=== PATIENT | male | born 1965 | race Caucasian/White ===

== ENCOUNTER 2018-02-16 13:32 | Inpatient (IN) | payer SELFPAY ==
[2018-02-16 14:21] LABS: #Lymphocytes 0.9 thou/uL (1.20-3.40); #Monocytes 0.8 thou/uL (0.11-0.59); #Neutrophils 5.4 thou/uL (1.40-6.50); %Basophils 0.6 % (0.0-1.0); %Eosinophils 0.2 % (0.0-10.0); %Lymphocytes 12.6 % (21.0-51.0); %Monocytes 11.2 % (0.0-10.0); %Neutrophils 75.4 % (42.0-75.0); Hemoglobin 8.5 g/dL (14.0-18.0); Mean Corpuscular HGB CONC 29.1 g/dL (32.0-36.0); Mean Corpuscular Hemoglobin 19.6 pg (27.0-31.0); Mean Corpuscular Volume 67.5 fL (78.0-98.0); Mean Platelet Volume 10.8 fL (7.4-10.4); Platelet Count 261 thou/uL (130-400); RBC Distribution Width 16.8 % (11.5-14.5); Red Blood Cell (RBC) Count 4.34 mill/uL (4.70-6.10); White Blood Cell (WBC) Count 7.2 thou/uL (4.8-10.8)
[2018-02-16 14:35] LABS: Anisocytosis SLIGHT = 6-15 cells (100X) (0-5/hpf); Hypochromia SLIGHT = 6-15 cells (100X) (0-5/hpf); MDiff Complete? YES; Microcytosis SLIGHT = 6-15 cells (100X) (0-5/hpf); Ovalocytes SLIGHT = 2-5 cells (100X) (0-1/hpf); PLT Morphology Comment Appears Adequate; Polychromasia SLIGHT = 2-3 cells (100X) (0-2/hpf)
[2018-02-16 14:41] LABS: ALT (SGPT) 13 U/L (8-55); AST (SGOT) 18 U/L (5-34); Albumin 3.9 g/dL (3.5-5.0); Alkaline Phosphatase 83 U/L (40-150); Anion Gap 8 mmol/L (10-20); BUN (Urea Nitrogen) 10 mg/dL (8.4-25.7); Bilirubin, Total 0.3 mg/dL (0.2-1.2); Calc. Creatinine Clearance 0 mL/min (70-130); Calcium 8.8 mg/dL (7.8-10.44); Carbon Dioxide 27 mmol/L (22-29); Chloride 104 mmol/L (98-107); Estimated GFR-MDRD Greater than 90; Globulin 2.9 g/dL (2.4-3.5); Glucose 108 mg/dL (70-105); Lipase 16 U/L (8-78); Protein, Total 6.8 g/dL (6.0-8.3); Sodium 135 mmol/L (136-145)
[2018-02-16 15:10] LABS: Prothrombin Time 13.5 SEC (12.0-14.7)
[2018-02-16 15:11] LABS: PTT 30.5 SEC (22.9-36.1)
[2018-02-16 15:31] LABS: Bilirubin Small (Negative); Blood, Urine Negative (Negative); Clarity CLEAR (Clear); Glucose, Urine (Dipstick) Negative (Negative); Leukocyte Negative (Negative); Nitrite Negative (Negative); Protein, Urine (Dipstick) 30 mg/dL (Neg-Trace); Specific Gravity, Urine 1.038 (1.002-1.036); Urobilinogen 0.2 mg/dL (0.2-1.0); pH, Urine 5.5 (5.0-9.0)
[2018-02-16 15:33] LABS: Bacteria/HPF None Seen HPF (None Seen); RBC/HPF 0-3 HPF (0-3); Squamous Epithelial 0-3 HPF (0-3); WBC/HPF 0-3 HPF (0-3)
[2018-02-16 15:34] LABS: Pathc Cast-AUWi Flag 5.66 (0-2.49)
[2018-02-16 15:44] LABS: Other Casts/LPF 4-6 FINELY GRAN LPF (0-3 Hyaline); Renal Epithelial None Seen HPF (0-3); Transitional Epithelial NONE SEEN HPF (0-3)
[2018-02-16] MEDS ORDERED: Ondansetron HCl/PF 4 MG/2 ML Vial IVP PRN (16:00)
[2018-02-16] MEDS ORDERED: Acetaminophen 325 MG TAB PO PRN (16:00)
[2018-02-16] MEDS ORDERED: Zolpidem Tartrate 5 MG TAB PO PRN (16:00)
--- NOTE | 2018-02-16 16:05 | HP ---
CHIEF COMPLAINT: The patient referred to [facility] by [facility]. HISTORY OF PRESENT ILLNESS: Patient with a roughly 11-year history of ulcerative colitis is out of his medicines for about 3 weeks due to financial difficulties. He states it is the same thing that always happens. He has a gradual onset of diarrhea, abdominal pain, and cramps and bloody diarrhea. He has lost 10 pounds in the past month. Denies fever, chills, vomiting. PAST MEDICAL HISTORY: Ulcerative colitis diagnosed in 1907. He has been on Apriso, but he is out. He often gets steroids when he is hospitalized. ALLERGIES: To CIPRO, rash. PAST SURGICAL HISTORY: None. FAMILY HISTORY: No inflammatory bowel disease. SOCIAL HISTORY: Single. Does not smoke. Occasional alcohol. REVIEW OF SYSTEMS: GENERAL: He has got some lethargy and lightheadedness and has to move slow. He has had no actual fainting. EYES: No double vision, blurred vision, flashing lights. ENT: No ear pain or drainage. No nasal bleeding. No trouble swallowing. CARDIAC: No chest pain, orthopnea or paroxysmal nocturnal dyspnea. RESPIRATORY: No cough, wheezing, or asthma. GASTROINTESTINAL: See present illness. GENITOURINARY: No hematuria or dysuria. MUSCULOSKELETAL: No inflamed joints, but his knees and elbows hurt. No distinct pain in his muscles, no swelling in his legs. PSYCHIATRIC: No anxiety or depression. NEUROLOGICAL: No strokes, seizures or focal weakness. SKIN: No bruising, bleeding, or rash. HEME/LYMPH: No tender or swollen lymph nodes in axilla, inguinal, or cervical area. PHYSICAL EXAMINATION: GENERAL: Alert, oriented, cooperative, pleasant gentleman. VITALS: Blood pressure 122/82, pulse 108, respirations 15, temperature 98.6. HEENT: Reveal pupils equal, round, and reactive. Extraocular movements are intact. Sclerae white. Tympanic membranes are clear. Nose is clear. Oral mucous membranes are wet. He had a lower left molar that is 90% rotted out, he stated he knew it. NECK: No jugular venous distention, adenopathy, or thyromegaly. CHEST: Clear to auscultation. HEART: Regular rate and rhythm. First and second heart sounds clear. No appreciated murmurs or gallops. ABDOMEN: Soft, very minimal tenderness to palpation. Bowel sounds were normal. No hepatosplenomegaly. No mass. EXTREMITIES: No cyanosis, clubbing, or edema. PULSES: Carotid, radial, femoral, and dorsalis pedis pulses intact and symmetric. SKIN: Warm and dry. HEME/LYMPH: No tender or swollen lymph nodes in axilla, inguinal or cervical area. No petechial hemorrhages on his fingernails. Oral mucous membranes. NEUROLOGICAL: Cranial nerves II-XII are intact. Deep tendon reflexes are symmetric. STUDIES: No radiographic studies have been done. EKG, none has been done. LABORATORY DATA: White count 7.2 with absolute neutrophilia, hemoglobin 8.5, platelet count 261,000. INR 1.0. Chemistry: Sodium 135, potassium 4.0, CO2 of 27, BUN 10, creatinine 0.83, blood sugar 108. Liver function tests are normal. ADMITTING DIAGNOSES: Ulcerative colitis flare with: 1. Abdominal pain. 2. Bloody diarrhea. 3. Anemia. PLAN: 1. IV steroids. 2. Morphine sulfate for pain. 3. Serial H&H, transfuse if necessary. If hemoglobin drops below 7, GI consult. CODE STATUS: Full. No surrogate decision maker available. plan reviewed, patient seen and examined. agree with plan of action MTDD
--- NOTE | 2018-02-16 16:45 | RAD ---
PA AND LATERAL CHEST X-RAY 02/16/18 HISTORY: Ulcerative colitis. COMPARISON: None available. FINDINGS: The cardiac silhouette and pulmonary vasculature are within normal limits. The lungs are clear. Mild degenerative changes are seen in the spine. IMPRESSION: No acute cardiopulmonary process. POS: [facility]
[2018-02-16] MEDS: Morphine 4 MG/ML VIAL SLOW IVP PRN ×2 (17:30→22:22)
[2018-02-16] MEDS: Sodium Chloride 0.9% 1,000 ML IV SCH (17:37)
[2018-02-16 17:56] VITALS: BMI 25.7
[2018-02-16] MEDS: Mesalamine DR 400 mg Capsule PO SCH (20:48)
[2018-02-16] MEDS ORDERED: Vancomycin HCl 25 MG/ML Oral PO SCH (22:15)
[2018-02-16 22:18] LABS: Hemoglobin 7.9 g/dL (14.0-18.0); Platelet Count 235 thou/uL (130-400)
[2018-02-16] MEDS: Azithromycin 500 MG in Sodium Chloride 0.9% 250 ML 250 ML IVPB SCH (22:32)
--- NOTE | 2018-02-17 02:19 | CON ---
DATE OF CONSULTATION: 02/16/2018 REASON FOR CONSULTATION: Probable ulcerative colitis flare. CONSULTING PHYSICIAN: Dr. Matias Muñoz. HISTORY OF PRESENT ILLNESS: The patient is a 52-year-old male with a past medical history of ulcerat tori colitis, presenting with complaints of diarrhea, abdominal pain, and hematochezia. Upon intervie wing the patient, he was diagnosed with ulcerative colitis in 2006 with initial presenting complaints of increased diarrhea, abdominal pain, and hematochezia. He subsequently underwent colonoscopy with biopsies confirming the diagnosis. He was initially placed on sulfasalazine at that time and had co mplete remission of his symptoms. Over the next 7-8 years, he was fairly well controlled on this par ticular regimen with only intermittent flares that required short bursts of steroids during this time . However, in 2014, he was changed from sulfasalazine to Apriso again with clinical remission obtain ed and only intermittent episodes of IBD flares. However, approximately 3 weeks ago, he ran out of t he Apriso and over the last 3 weeks, he had a recurrence of increased diarrhea, which then was shortl y followed by abdominal pain and had hematochezia shortly thereafter. At the current point in time, his presenting symptoms are similar to his initial presenting symptoms were diagnosed in 2006. The a bdominal pain, he states it is located in the suprapubic region characterized as an aching, cramping- type sensation, nonradiating, and will reach a severity approximately 6-7/10. There are no clear all eviating or exacerbating factors, but somewhat alleviated with having a bowel movement. Currently, h e denies any nausea, vomiting, fevers, chills, dysphagia, or odynophagia. REVIEW OF SYSTEMS: A 10-category review of systems was obtained with all responses negative except f or the pertinent positives as listed in the HPI. PAST MEDICAL HISTORY: Ulcerative colitis. PAST SURGICAL HISTORY: None. FAMILY HISTORY: Denies any GI malignancies or inflammatory bowel disease. SOCIAL HISTORY: Denies any tobacco or illicit drug use. Drinks approximately 2-3 beers every 1-2 we eks. OUTPATIENT MEDICATIONS: Apriso 1.5 g daily. ALLERGIES: CIPRO. PHYSICAL EXAMINATION: VITAL SIGNS: Temperature 98.4, pulse 96, blood pressure 125/81, respiratory rate 20, satting 100% on room air. GENERAL: The patient was lying in bed, in no acute distress. Alert and oriented x4. NECK: Supple. No JVD noted. HEENT: No scleral icterus noted. CARDIOVASCULAR: Tachycardic rate, but normal rhythm. No discernible murmurs, gallops, or rubs. RESPIRATORY: Clear to auscultation bilaterally with no discernible wheezes or rales. ABDOMEN: Normoactive bowel sounds, soft, nondistended. Tenderness to palpation in the periumbilical and suprapubic regions as well as the left and right lower quadrants. EXTREMITIES: No cyanosis, clubbing, or edema. LABORATORY DATA: CBC with a white blood cell count of 7.2, hemoglobin 8.5, hematocrit 29.3, platelet s 261,000. INR 1.0. Chemistry showing sodium of 135, potassium 4.0, chloride 104, CO2 of 27, BUN 10 , creatinine 0.83, glucose 108, AST 18, ALT 13, alkaline phosphatase 83, total bilirubin 0.3. IMAGING DATA: Chest x-ray obtained on 02/16/2018, showed no acute cardiopulmonary process. ASSESSMENT AND PLAN: The patient is a 52-year-old man with past medical history of ulcerative coliti s, presenting with a probable ulcerative colitis flare due to medication noncompliance. Ulcerative colitis flare: The patient was initially diagnosed with ulcerative colitis in 2006 with i nitial presenting symptoms of diarrhea, abdominal pain, and hematochezia. He subsequently underwent colonoscopy with endoscopic and histologic findings consistent with ulcerative colitis. He was ultim ately placed on sulfasalazine and was in remission with only intermittent flares while on this medica tion, he was changed to Apriso in 2014 and again enjoyed an element of remission with only mild flare s requiring short steroid tapers; however, he ran out of his medications approximately [address] moving to the [facility] area and had recurrence of his symptoms including diarrhea, a bdominal pain, and hematochezia characterized as bright red blood per rectum. At this point in time, the most likely reason for the recurrence of his symptoms would be an ulcerative colitis flare due t o medication noncompliance/running out of his medications. However, infectious etiology should be ru led out in light of any sort of inflammatory bowel disease flare. RECOMMENDATIONS: 1. We would obtain infectious stool studies to rule out any infectious etiology that could be contri buting to his flare. Once the stool studies are obtained, could consider with other modalities of era. 2. Once this infectious stool studies are obtained, would start the patient back on mesalamine 2.4 g steven daily in addition to methylprednisolone 40 mg q.6 hours for probable ulcerative colitis flare. 3. If the Infectious Disease studies are positive for infectious etiology, I would withdraw the ster oid administration and treat the infection as appropriate. 4. Pain control per primary team. 5. Patient will ultimately need follow up in the GI clinic upon discharge for further titration of h is medications and monitoring for his ulcerative colitis. We will continue to follow. Please call with any questions.
[2018-02-17] MEDS: Sodium Chloride 0.9% 1,000 ML IV SCH ×2 (04:40→14:53)
[2018-02-17 05:22] LABS: #Lymphocytes 0.4 thou/uL (1.20-3.40); #Monocytes 0.2 thou/uL (0.11-0.59); %Eosinophils 0.1 % (0.0-10.0); %Lymphocytes 5.3 % (21.0-51.0); %Neutrophils 92.6 % (42.0-75.0); Hemoglobin 7.8 g/dL (14.0-18.0); Mean Corpuscular HGB CONC 28.4 g/dL (32.0-36.0); Mean Corpuscular Hemoglobin 19.3 pg (27.0-31.0); Mean Corpuscular Volume 67.9 fL (78.0-98.0); Mean Platelet Volume 10.8 fL (7.4-10.4); Platelet Count 257 thou/uL (130-400); RBC Distribution Width 16.9 % (11.5-14.5); Red Blood Cell (RBC) Count 4.05 mill/uL (4.70-6.10); White Blood Cell (WBC) Count 7.6 thou/uL (4.8-10.8)
[2018-02-17 05:29] LABS: Anion Gap 8 mmol/L (10-20); BUN (Urea Nitrogen) 6 mg/dL (8.4-25.7); Calc. Creatinine Clearance 131 mL/min (70-130); Calcium 8.6 mg/dL (7.8-10.44); Carbon Dioxide 26 mmol/L (22-29); Chloride 103 mmol/L (98-107); Estimated GFR-MDRD Greater than 90; Glucose 223 mg/dL (70-105); Potassium 4.2 mmol/L (3.5-5.1); Sodium 133 mmol/L (136-145)
[2018-02-17] MEDS: Morphine 4 MG/ML VIAL SLOW IVP PRN ×4 (06:08→20:05)
[2018-02-17 06:10] LABS: Hemoglobin 7.7 g/dL (14.0-18.0); Platelet Count 262 thou/uL (130-400)
--- NOTE | 2018-02-17 08:01 | PDOC.PN ---
- Subjective Encounter Start Date: 02/17/18 Encounter Start Time: 08:02 Subjective: much better, no diarrhea - Objective Resuscitation Status: Resuscitation Status FULL:Full Resuscitation MAR Reviewed: Yes Vital Signs & Weight: Vital Signs (12 hours) Temp Pulse Resp BP Pulse Ox 02/17/18 07:34 98.4 F 84 18 127/72 100 02/17/18 04:22 98.8 F 84 16 109/68 98 02/17/18 00:39 98.8 F 93 16 110/68 97 02/16/18 20:08 99.2 F 85 18 118/79 97 02/16/18 20:00 98 Weight Weight 179 lb Result Diagrams: 02/17/18 05:52 02/17/18 04:17 Phys Exam - Physical Examination Neck: no JVD Respiratory: clear to auscultation bilateral Cardiovascular: RRR, no significant murmur Gastrointestinal: soft, non-tender, positive bowel sounds Musculoskeletal: no edema Dx/Plan (1) Colitis due to Clostridium difficile Status: Acute (2) Ulcerative colitis Code(s): K51.90 - ULCERATIVE COLITIS, UNSPECIFIED, WITHOUT COMPLICATIONS Status: Chronic Qualifiers: Ulcerative colitis location: unspecified ulcerative colitis location Digestive disease complication type: unspecified complication Qualified Code(s ): K51.919 - Ulcerative colitis, unspecified with unspecified complications (3) Campylobacter enteritis Code(s): A04.5 - CAMPYLOBACTER ENTERITIS Status: Acute (4) Anemia Code(s): D64.9 - ANEMIA, UNSPECIFIED Status: Acute Qualifiers: Anemia type: unspecified type Qualified Code(s): D64.9 - Anemia, unspecified - Plan stop steroids -: add po vancomycin, zithromax -: discuss with GI * .
[2018-02-17] MEDS: Vancomycin HCl 25 MG/ML Oral PO SCH ×4 (09:36→19:59)
[2018-02-17] MEDS: Mesalamine DR 400 mg Capsule PO SCH ×3 (09:37→19:58)
--- NOTE | 2018-02-17 13:00 | PRG ---
DATE OF SERVICE: 02/17/2018 REASON FOR CONSULTATION: Probable ulcerative colitis flare, infectious diarrhea. SUBJECTIVE: Upon review of the patient's studies, he was positive for both Clostridium difficile as well as Campylobacter infections which could then further exacerbate his ulcerative colitis. He was subsequently started on azithromycin and oral vancomycin respectively and since administration of ant ibiotics, he states that his diarrhea frequency has diminished to the point where he has had only two bowel movements this morning compared to the 5-12 bowel movements over the last 24 hours previously. Currently, he states that his abdominal pain has significantly improved as well, and he has not had any further episodes of hematochezia. Currently, denies any nausea, vomiting, fevers, chills, dysph agia, odynophagia or GI bleeding. OBJECTIVE: VITAL SIGNS: Temperature 98.2, pulse 84, blood pressure 111/68, respiratory rate 18, satting 99% on room air. GENERAL: The patient lying in bed, in no acute distress. Alert and oriented x4. CARDIOVASCULAR: Regular rate and rhythm. LUNGS: Clear to auscultation bilaterally. ABDOMEN: Normoactive bowel sounds, soft, nondistended, mild tenderness to palpation in the periumbil ical and suprapubic regions. EXTREMITIES: No cyanosis, clubbing or edema. LABORATORY DATA: CBC with a white blood cell count of 7.6, hemoglobin 7.7, hematocrit 26.4, platelet s 262. Chemistry with a sodium 133, potassium 4.2, chloride 103, CO2 26, BUN 6, creatinine 0.76, glu cose 223. Infectious stool studies were positive for both Clostridium difficile and Campylobacter in fections. IMAGING DATA: No current GI imaging is available for review. ASSESSMENT AND PLAN: The patient is a 52-year-old male with past medical history of ulcerative colit is presenting with probable ulcerative colitis flare due to medication noncompliance and/or infectiou s diarrhea. Ulcerative colitis flare secondary to infection: The patient was initially diagnosed with ulcerative colitis in 2006 with initial presenting symptoms including diarrhea, abdominal pain, and hematochezi a. He subsequently underwent colonoscopy with endoscopic and histologic findings consistent with [place] erative colitis. He was ultimately placed on sulfasalazine and more recently Apriso with significant improvement in his symptoms and enjoyed an element of remission during this time with only mild flar es requiring short steroid tapers; however, he ran out of his Apriso approximately 3 weeks ago with s low return of his initially presenting symptoms including diarrhea, abdominal pain, and hematochezia. With worsening of all of these symptoms as well as bright red blood per rectum, he ultimately sough t health care assistance at [facility]. Infectious stool studies performed while he was her e were positive for Campylobacter and Clostridium difficile infections. He was placed on appropriate antibiotic therapy and has had a significant improvement in the frequency of his bowel movements aft er initiation of this therapy. At this time, the more likely reason for his ulcerative colitis flare would be an infectious diarrhea; however, medication noncompliance or rather not taking his medicati ons could also contribute to what is going on. RECOMMENDATIONS: 1. We would continue to treat the Campylobacter and Clostridium difficile infections with azithromyc in and oral vancomycin respectively. 2. We would continue mesalamine 2.4 grams daily as part of treatment of ulcerative colitis. 3. I agree with holding the steroids for now and given active infection within the colon. 4. Pain control per primary team. We will continue to follow. Please call with any questions.
[2018-02-17 14:23] LABS: Hemoglobin 7.6 g/dL (14.0-18.0); Platelet Count 258 thou/uL (130-400)
[2018-02-17 22:04] LABS: Platelet Count 255 thou/uL (130-400)
[2018-02-17] MEDS: Azithromycin 500 MG in Sodium Chloride 0.9% 250 ML 250 ML IVPB SCH (22:43)
[2018-02-18 05:23] LABS: #Lymphocytes 1.4 thou/uL (1.20-3.40); #Neutrophils 8.4 thou/uL (1.40-6.50); %Basophils 0.4 % (0.0-1.0); %Eosinophils 0.2 % (0.0-10.0); %Lymphocytes 12.8 % (21.0-51.0); %Monocytes 9.6 % (0.0-10.0); %Neutrophils 77.1 % (42.0-75.0); Hemoglobin 7.2 g/dL (14.0-18.0); Mean Corpuscular HGB CONC 28.6 g/dL (32.0-36.0); Mean Corpuscular Hemoglobin 19.8 pg (27.0-31.0); Mean Corpuscular Volume 69.1 fL (78.0-98.0); Mean Platelet Volume 9.8 fL (7.4-10.4); Platelet Count 273 thou/uL (130-400); RBC Distribution Width 17.1 % (11.5-14.5); Red Blood Cell (RBC) Count 3.66 mill/uL (4.70-6.10); White Blood Cell (WBC) Count 10.9 thou/uL (4.8-10.8)
[2018-02-18] MEDS: Sodium Chloride 0.9% 1,000 ML IV SCH ×3 (05:25→15:56)
[2018-02-18 05:29] LABS: Anion Gap 9 mmol/L (10-20); BUN (Urea Nitrogen) 6 mg/dL (8.4-25.7); Calc. Creatinine Clearance 158 mL/min (70-130); Calcium 8.2 mg/dL (7.8-10.44); Carbon Dioxide 26 mmol/L (22-29); Chloride 109 mmol/L (98-107); Estimated GFR-MDRD Greater than 90; Glucose 98 mg/dL (70-105); Sodium 140 mmol/L (136-145)
[2018-02-18] MEDS: Mesalamine DR 400 mg Capsule PO SCH ×3 (08:15→19:45)
[2018-02-18] MEDS: Morphine 4 MG/ML VIAL SLOW IVP PRN ×3 (08:16→18:29)
--- NOTE | 2018-02-18 09:40 | PDOC.PN ---
- Subjective Encounter Start Date: 02/18/18 Encounter Start Time: 09:38 Subjective: abd pain and bloosd per rectum resolved - Objective Resuscitation Status: Resuscitation Status FULL:Full Resuscitation Vital Signs & Weight: Vital Signs (12 hours) Temp Pulse Resp BP BP Pulse Ox 02/18/18 07:11 98.8 F 72 19 110/68 100 02/18/18 04:00 97.6 F 70 20 106/62 100 02/18/18 00:00 97.9 F 78 20 100/64 97 Weight Admit Weight 179 lb Weight 179 lb Result Diagrams: 02/18/18 04:31 02/18/18 04:31 Phys Exam - Physical Examination Neck: no JVD Respiratory: clear to auscultation bilateral Cardiovascular: RRR, no significant murmur Gastrointestinal: soft, non-tender, positive bowel sounds Musculoskeletal: no edema Dx/Plan (1) Colitis due to Clostridium difficile Status: Acute (2) Ulcerative colitis Code(s): K51.90 - ULCERATIVE COLITIS, UNSPECIFIED, WITHOUT COMPLICATIONS Status: Chronic Qualifiers: Ulcerative colitis location: unspecified ulcerative colitis location Digestive disease complication type: unspecified complication Qualified Code(s ): K51.919 - Ulcerative colitis, unspecified with unspecified complications (3) Campylobacter enteritis Code(s): A04.5 - CAMPYLOBACTER ENTERITIS Status: Acute (4) Anemia Code(s): D64.9 - ANEMIA, UNSPECIFIED Status: Acute Qualifiers: Anemia type: unspecified type Qualified Code(s): D64.9 - Anemia, unspecified - Plan cont po vancomycin, zithromax -: discuss length of tx and DC planning with Dr Ramirez * .
[2018-02-18] MEDS: Vancomycin HCl 25 MG/ML Oral PO SCH ×3 (10:42→19:46)
--- NOTE | 2018-02-18 13:31 | PRG ---
DATE OF SERVICE: 02/18/2018 REASON FOR CONSULTATION: Probable ulcerative colitis flare, infectious diarrhea. SUBJECTIVE: The patient states that he has increased fatigue this morning, but had not received much sleep over the last 24-48 hours and feels that this is catching up with him. Otherwise, he states t hat within the last 24 hours, he has had approximately 2-3 liquid bowel movements with no difficulty with defecation. He also states that he had some mild increase in cramping abdominal pain this morni ng, but after eating a regular diet, the cramping pain went away. Currently, denies any nausea, vomi ting, fevers, chills, dysphagia, odynophagia, abdominal pain, or GI bleeding. OBJECTIVE: VITAL SIGNS: Temperature 97.7, pulse 81, blood pressure 102/56, respiratory rate 17, satting 99% on room air. GENERAL: The patient was lying in bed in no acute distress. Alert and oriented x4. CARDIOVASCULAR: Regular rate and rhythm. RESPIRATORY: Clear to auscultation bilaterally. ABDOMEN: Normoactive bowel sounds, soft, nontender, nondistended. EXTREMITIES: No cyanosis, clubbing or edema. LABORATORY DATA: CBC with a white blood cell count of 10.9, hemoglobin 7.2, hematocrit 25.3 and plat elets 273. Chemistry with sodium of 140, potassium 4.0, chloride 109, CO2 26, BUN 6, creatinine 0.63 , glucose 98. IMAGING DATA: No current GI imaging is available for review. ASSESSMENT AND PLAN: The patient is a 52-year-old male with past medical history of ulcerative colit is presenting with probable ulcerative colitis flare due to infectious diarrhea. Ulcerative colitis flare secondary to infection. The patient was initially diagnosed with ulcerative colitis in 2006 with initial presenting symptoms including diarrhea, abdominal pain, and hematochezia. He was ultimately placed on sulfasalazine and more recently Apriso with significant improvement in his symptoms and enjoyed an element of remission while on this regimen with only mild flares requiring short steroid tapers in the interim; however, 3 weeks ago with discontinuation of his mesalamine medication (Apriso), he had slow return of his sym ptoms to include diarrhea, abdominal pain, and hematochezia. Upon evaluation here at [facility], he was noted to have a colon infection with both Campylobacter and Clostridium difficile. He w as subsequently placed on appropriate antibiotic therapy and has had significant improvement in his s ymptoms while on this regimen. He does continued to have liquid consistency bowel movements, but has had a significant decrease in frequency indicating response to treatment. Given his history of ulce rative colitis, he may not have normal solidification of his stools with adequate treatment of his C. diff and may not be a reliable indicator as response to treatment. RECOMMENDATIONS: 1. We would continue to treat the Campylobacter and Clostridium difficile infections with azithromyc in and oral vancomycin, respectively. Both of these medications can be given on an outpatient basis. 2. We would continue mesalamine 2.4 grams daily as part of treatment for ulcerative colitis. 3. We would continue to hold steroids for now given active infection. 4. Pain control per primary team. 5. If the patient is able to tolerate a regular diet over the next 24 hours and no significant cline e in the frequency of his stools, he could be potentially discharged to home with oral antibiotic the rapy and follow up in the GI Clinic within 2 weeks of discharge. We will continue to follow. Please call with any questions.
[2018-02-18] MEDS: Azithromycin 500 MG in Sodium Chloride 0.9% 250 ML 250 ML IVPB SCH (22:54)
[2018-02-19] MEDS ORDERED: Morphine 4 MG/ML VIAL ONE (06:27)
[2018-02-19] MEDS: Morphine 4 MG/ML VIAL SLOW IVP PRN ×3 (11:30→21:15)
[2018-02-19] MEDS: Sodium Chloride 0.9% 1,000 ML IV SCH ×2 (11:48→14:56)
[2018-02-19] MEDS: Mesalamine DR 400 mg Capsule PO SCH ×3 (11:48→20:27)
[2018-02-19] MEDS: Vancomycin HCl 25 MG/ML Oral PO SCH ×4 (11:49→20:26)
[2018-02-19 13:41] LABS: Hemoglobin 7.8 g/dL (14.0-18.0)
--- NOTE | 2018-02-19 17:16 | PDOC.PN ---
- Subjective Encounter Start Date: 02/19/18 Encounter Start Time: 17:15 Subjective: f/u for UC flare and infectious diarrhea with C. diff/Campylobacter -: on current Vancomycin/Zithromax. Feeling much better. Some abd cramps -: but appetite good. - Objective Resuscitation Status: Resuscitation Status FULL:Full Resuscitation MAR Reviewed: Yes Vital Signs & Weight: Vital Signs (12 hours) Temp Pulse Resp BP Pulse Ox 02/19/18 16:29 98.9 F 81 16 121/77 98 Weight Admit Weight 179 lb Weight 179 lb I&O: 02/18/18 02/19/18 02/20/18 06:59 06:59 06:59 Intake Total 1200 2350 Balance 1200 2350 Result Diagrams: 02/19/18 10:30 02/18/18 04:31 Additional Labs: Microbiology 02/16/18 20:20 Stool Shiga Toxin Test - Final 02/16/18 20:20 Stool Rotavirus Detection - Final 02/16/18 20:20 Stool Rapid Parasite Screen - Final 02/16/18 20:20 Stool Campylobacter Antigen Assay - Final 02/16/18 20:20 Stool C. difficile GDH Antigen & Toxins - Final 02/16/18 20:20 Stool Clostridium difficile Toxin A&B PCR - Final Laboratory Tests 02/17/18 02/17/18 02/17/18 04:18 05:52 14:11 Hgb 7.8 L 7.7 L 7.6 L 02/17/18 02/18/18 21:49 04:31 Hgb 7.0 L 7.2 L Phys Exam - Physical Examination Constitutional: NAD HEENT: PERRLA, sclera anicteric, oral pharynx no lesions Neck: no nodes, no JVD, supple, full ROM Respiratory: no wheezing, no rales, no rhonchi, clear to auscultation bilateral Cardiovascular: RRR, no significant murmur, no rub, gallop Gastrointestinal: soft, non-tender, no distention, positive bowel sounds Musculoskeletal: no edema, pulses present Neurological: normal sensation, moves all 4 limbs Psychiatric: normal affect, A&O x 3 Skin: normal turgor, cap refill <2 seconds Dx/Plan (1) Ulcerative colitis Code(s): K51.90 - ULCERATIVE COLITIS, UNSPECIFIED, WITHOUT COMPLICATIONS Status: Chronic Qualifiers: Ulcerative colitis location: unspecified ulcerative colitis location Digestive disease complication type: unspecified complication Qualified Code(s ): K51.919 - Ulcerative colitis, unspecified with unspecified complications Comment: Continue Mesalamine, Budesonide (2) Campylobacter enteritis Code(s): A04.5 - CAMPYLOBACTER ENTERITIS Status: Acute Comment: Continue Zithromax (3) Anemia Code(s): D64.9 - ANEMIA, UNSPECIFIED Status: Acute Qualifiers: Anemia type: unspecified type Qualified Code(s): D64.9 - Anemia, unspecified Comment: Transfuse 1u PRBC's today, serial H/H, repeat CBC in am (4) Colitis due to Clostridium difficile Status: Acute Comment: Continue Vancomycin - Plan continue antibiotics, out of bed/ambulate, DVT proph w/SCDs Stable overall -: Continue Zithromax and Vancomycin -: Serial H/H -: Continue Budesonide and Mesalamine -: Florastor daily * AM lab: CBC * Home in am
--- NOTE | 2018-02-19 18:19 | PRG ---
DATE OF SERVICE: 02/19/2018 REASON FOR CONSULTATION: Ulcerative colitis flare, infectious diarrhea. SUBJECTIVE: Yesterday, the patient was initially feeling well with no return of his abdominal pain, but the day wore on he had increasing suprapubic/periumbilical abdominal pain as well as increased fr equency of liquid stools. Overnight, he did have 1-2 episodes of bright red blood per rectum as well . Currently, he states that he continues to have mild cramping abdominal pain, but has not had any f urther episodes of hematochezia this morning/late morning. Currently, he denies any nausea, vomiting , fevers, chills, dysphagia, odynophagia. OBJECTIVE: VITAL SIGNS: Temperature 99.1, pulse 90, blood pressure 108/70, respiratory rate 20, satting 98% on room air. GENERAL: The patient was lying in bed, in no acute distress. He is alert and oriented x4. CARDIOVASCULAR: Regular rate and rhythm. RESPIRATORY: Clear to auscultation bilaterally. ABDOMEN: Normoactive bowel sounds, soft, nontender, nondistended. EXTREMITIES: No cyanosis, clubbing or edema. LABORATORY DATA: Hemoglobin 7.8, hematocrit 28.2. IMAGING DATA: No current GI imaging is available for review. ASSESSMENT AND PLAN: The patient is a 52-year-old male with past medical history of ulcerative colit is presenting with probable ulcerative colitis flare due to infectious diarrhea. Ulcerative colitis flare secondary to infection: The patient is presenting with a prior diagnosis of ulcerative colitis in 2006 and had been relatively controlled with the use of Apriso as an outpatien t; however, he ran out of this medication approximately 3 weeks ago with progressive onset of diarrhe a, abdominal pain, and ultimately hematochezia. Upon evaluation here at [facility], he wa s noted to have infectious stool studies positive for both Campylobacter and Clostridium difficile. He was subsequently placed on appropriate antibiotic therapy and had significant improvement in his s ymptoms while on this regimen. Of note, on admission, he was given approximately 1-2 doses of IV rio roids, which could have contributed to the sudden increase or sudden improvement in his clinical stat us which we are now seeing a slight declining. Now that the infectious diarrhea is being adequately treated. We may be able to add back steroid administration for treatment of his ulcerative colitis [place] [employer]. RECOMMENDATIONS: 1. We would continue antibiotics for treatment of both Campylobacter and Clostridium difficile infec tions. 2. We would continue mesalamine 2.4 grams daily. 3. We would add back budesonide 9 mg daily as part of treatment for ulcerative colitis flare, now th at the infectious diarrhea has started to have been treated. 4. Pain control per primary team. We will continue to follow. Please call with any questions.
[2018-02-19 18:52] LABS: Hemoglobin 9.2 g/dL (14.0-18.0)
[2018-02-19] MEDS: Azithromycin 500 MG in Sodium Chloride 0.9% 250 ML 250 ML IVPB SCH (23:51)
[2018-02-20] MEDS: Sodium Chloride 0.9% 1,000 ML IV SCH (01:04)
[2018-02-20] MEDS: Morphine 4 MG/ML VIAL SLOW IVP PRN ×3 (01:46→09:56)
[2018-02-20] MEDS: Vancomycin HCl 25 MG/ML Oral PO SCH (07:51)
[2018-02-20 07:56] VITALS: BP 114/74; TEMP 98.3
[2018-02-20] MEDS ORDERED: Saccharomyces boulardii 250 MG CAP PO SCH (09:00)
[2018-02-20] MEDS: Mesalamine DR 400 mg Capsule PO SCH (09:49)
--- NOTE | 2018-02-20 10:39 | DIS ---
DATE OF ADMISSION: 02/16/2018 DATE OF DISCHARGE: 02/20/2018 DISCHARGE DIAGNOSES: 1. Ulcerative colitis exacerbation, improved. 2. Campylobacter enteritis, improved. 3. Clostridium difficile colitis. 4. Acute on chronic microcytic anemia, status post 1 unit of packed red blood cells. CONSULTATIONS: Dr. Demetrius Ramirez with GI Service. PERTINENT LABORATORY DATA AND X-RAY FINDINGS: Basic metabolic profile within normal limits. LFTs wi thin normal limits. Lipase 16. CBC showed a white blood cell count ranged between 7.2-10.9, hemoglo bin ranged between 7.0-9.2, MCV ranged between 68-69. Portable chest x-ray dated 02/16/2018 showed n o acute cardiopulmonary process. HOSPITAL COURSE: The patient was initially admitted after presenting with persistent diarrhea, abdom inal pain, and hematochezia. The patient underwent general evaluation. The patient was initially ev aluated and placed on IV steroids as well as given morphine sulfate for pain control and started on a ntibiotic therapy after the patient's stool samples were positive for Campylobacter and Clostridium d ifficile. The patient was evaluated by the GI service with recommendations for medical management. The patient continued on oral vancomycin 125 mg q.i.d. with additional azithromycin 500 mg daily. Th e patient also was placed on budesonide and clinically stabilized. The patient did receive 1 unit of packed red blood cells after serial hemoglobins showed overall decreasing trend. The patient tolera benedicto the packed red blood cell transfusion and hemoglobin remained stable at 9.2. Overall, the patien t did clinically stabilize, tolerating regular oral intake, ambulating without assistance or difficul ty with stable vital signs. I have examined the patient at the time of discharge and discussed [facility] instructions. The patient verbalized understanding and agreement and ready for discharge on 02/08. DISCHARGE MEDICATIONS: 1. Mesalamine 800 mg p.o. t.i.d. 2. Azithromycin 250 mg p.o. daily x4 days. 3. Budesonide 9 mg p.o. daily. 4. Florastor 250 mg p.o. daily. 5. Vancomycin 25 mg per mL, 5 mL p.o. q.i.d. FOLLOWUP: The patient will follow with Dr. Demetrius Ramirez within 7 days of discharge. CONDITION ON DISCHARGE: Stable. ACTIVITY: ad alejandro. DIET: Regular. CODE STATUS: FULL. DISPOSITION: Home 02/20/2018.
== END 2018-02-20 11:59 | disposition home or self-care (01) | DRG 372 ==
LOC: ERS 13:32 → T4-A 16:06
PROVIDERS: ADMIT Internal Medicine; ATTEND Internal Medicine
PROC: 30233N1 Transfusion of Nonautologous Red Blood Cells into Peripheral Vein, Percutaneous Approach (ICD-10-PCS; principal; 2018-02-19)
DX: A04.5 Campylobacter enteritis (principal); K51.90 Ulcerative colitis, unspecified, without complications; A04.72 Enterocolitis due to Clostridium difficile, not specified as recurrent; D50.9 Iron deficiency anemia, unspecified; Z88.1 Allergy status to other antibiotic agents; Z91.14 Patient's other noncompliance with medication regimen
CPT/HCPCS: 36415; 36430; 71046; 80048; 80053; 81003; 81015; 83690; 85014; 85018; 85025; 85610; 85730; 86403; 86850; 86900; 86901; 87324; 87328; 87329; 87449; 87493; 87899; 96360; 96361; J0456; J2270; J2920; J7050; P9016

== ENCOUNTER 2018-05-19 13:06 | Emergency (ER) | payer OTHER, SELFPAY ==
[2018-05-19 13:47] LABS: Mean Corpuscular Volume 81.4 fL (78.0-98.0); Mean Platelet Volume 9.4 fL (7.4-10.4); Platelet Count 308 thou/uL (130-400); RBC Distribution Width 20.7 % (11.5-14.5); White Blood Cell (WBC) Count 5.7 thou/uL (4.8-10.8)
[2018-05-19 14:08] LABS: ALT (SGPT) 17 U/L (8-55); AST (SGOT) 20 U/L (5-34); Albumin 4.3 g/dL (3.5-5.0); Alkaline Phosphatase 86 U/L (40-150); Anion Gap 13 mmol/L (10-20); BUN (Urea Nitrogen) 11 mg/dL (8.4-25.7); Bilirubin, Total 0.3 mg/dL (0.2-1.2); Calc. Creatinine Clearance 0 mL/min (70-130); Calcium 9.6 mg/dL (7.8-10.44); Carbon Dioxide 27 mmol/L (22-29); Chloride 104 mmol/L (98-107); Estimated GFR-MDRD 87; Globulin 2.6 g/dL (2.4-3.5); Glucose 95 mg/dL (70-105); Lipase 26 U/L (8-78); Potassium 4.4 mmol/L (3.5-5.1); Protein, Total 6.9 g/dL (6.0-8.3); Sodium 140 mmol/L (136-145)
[2018-05-19 14:10] LABS: Band 1 % (5-11); Eosinophils 1 % (0-10); Lymphocytes 27 % (21-51); MDiff Complete? YES; Monocytes 7 % (0-10); Neutrophil 54 % (42-75); RBC Morphology Normal; Reactive Lymphocytes 10 % (0-10)
[2018-05-19 14:44] LABS: Bilirubin Small (Negative); Blood, Urine Negative (Negative); Clarity CLEAR (Clear); Glucose, Urine (Dipstick) Negative (Negative); Leukocyte Negative (Negative); Nitrite Negative (Negative); Protein, Urine (Dipstick) Trace mg/dL (Neg-Trace); Specific Gravity, Urine 1.032 (1.002-1.036)
[2018-05-19] MEDS ORDERED: Dexamethasone 10 MG/ML VIAL ONE (15:20)
[2018-05-19] MEDS ORDERED: Morphine 4 MG/ML VIAL ONE (16:01)
== END 2018-05-19 17:02 | disposition home or self-care (01) ==
LOC: ERS 13:06
DX: K51.90 Ulcerative colitis, unspecified, without complications (principal)
CPT/HCPCS: 36415; 80053; 81003; 83690; 85025; 96361; 96374; J1100; J2270

== ENCOUNTER 2021-04-10 16:58 | Inpatient (IN) | payer SELFPAY ==
[~2021-04-10 16:58] MED LIST: Iopamidol-370 76% 500 ML 1 ML ONE
[2021-04-10 17:32] LABS: #Lymphocytes 1.3 thou/uL (1.20-3.40); #Monocytes 1.2 thou/uL (0.11-0.59); #Neutrophils 7.7 thou/uL (1.40-6.50); %Basophils 0.5 % (0.0-1.0); %Eosinophils 0.5 % (0.0-10.0); %Lymphocytes 12.6 % (21.0-51.0); %Monocytes 11.3 % (0.0-10.0); %Neutrophils 75.1 % (42.0-75.0); Hemoglobin 11.9 g/dL (14.0-18.0); Mean Corpuscular HGB CONC 31.5 g/dL (32.0-36.0); Mean Corpuscular Hemoglobin 25.1 pg (27.0-31.0); Mean Corpuscular Volume 79.5 fL (78.0-98.0); Mean Platelet Volume 7.1 fL (7.4-10.4); Platelet Count 394 thou/uL (130-400); RBC Distribution Width 16.1 % (11.5-14.5); Red Blood Cell (RBC) Count 4.76 mill/uL (4.70-6.10); White Blood Cell (WBC) Count 10.3 thou/uL (4.8-10.8)
[2021-04-10 17:55] LABS: CRP (Inflammatory) 2.98 mg/dL (= or < 0.5)
[2021-04-10 17:56] LABS: ALT (SGPT) 16 U/L (8-55); AST (SGOT) 18 U/L (5-34); Albumin 3.7 g/dL (3.5-5.0); Alkaline Phosphatase 86 U/L (40-110); Anion Gap 13 mmol/L (10-20); BUN (Urea Nitrogen) 12 mg/dL (8.4-25.7); Bilirubin, Total 0.2 mg/dL (0.2-1.2); Calc. Creatinine Clearance 0 mL/min (70-130); Calcium 9.3 mg/dL (7.8-10.44); Carbon Dioxide 26 mmol/L (22-29); Chloride 105 mmol/L (98-107); Globulin 3.8 g/dL (2.4-3.5); Glucose 90 mg/dL (70-105); Potassium 3.7 mmol/L (3.5-5.1); Protein, Total 7.5 g/dL (6.0-8.3); Sodium 140 mmol/L (136-145)
[2021-04-10] MEDS ORDERED: Acetaminophen 500 MG TAB ONE (21:58)
[2021-04-10] MEDS ORDERED: Ketorolac Tromethamine 30 MG/ML VIAL ONE (21:58)
[2021-04-10] MEDS ORDERED: Ondansetron PF 4 MG/2 ML Vial IVP PRN (23:59)
[2021-04-10] MEDS ORDERED: Acetaminophen 325 MG TAB PO PRN (23:59)
[2021-04-11] MEDS: Sodium Chloride 0.9% 1,000 ML IV SCH ×3 (00:20→17:33)
[2021-04-11 00:52] LABS: Hemoglobin 10.6 g/dL (14.0-18.0)
[2021-04-11 07:46] LABS: #Lymphocytes 0.8 thou/uL (1.20-3.40); #Monocytes 0.8 thou/uL (0.11-0.59); #Neutrophils 5.8 thou/uL (1.40-6.50); %Basophils 0.3 % (0.0-1.0); %Eosinophils 0.5 % (0.0-10.0); %Lymphocytes 10.3 % (21.0-51.0); Hemoglobin 10.5 g/dL (14.0-18.0); Mean Corpuscular HGB CONC 30.6 g/dL (32.0-36.0); Mean Corpuscular Hemoglobin 24.7 pg (27.0-31.0); Mean Corpuscular Volume 80.8 fL (78.0-98.0); Mean Platelet Volume 7.4 fL (7.4-10.4); Platelet Count 342 thou/uL (130-400); Red Blood Cell (RBC) Count 4.25 mill/uL (4.70-6.10); White Blood Cell (WBC) Count 7.4 thou/uL (4.8-10.8)
[2021-04-11 08:02] LABS: Anion Gap 10 mmol/L (10-20); BUN (Urea Nitrogen) 12 mg/dL (8.4-25.7); Calc. Creatinine Clearance 121 mL/min (70-130); Calcium 8.5 mg/dL (7.8-10.44); Carbon Dioxide 24 mmol/L (22-29); Chloride 110 mmol/L (98-107); Glucose 87 mg/dL (70-105); Potassium 3.9 mmol/L (3.5-5.1); Sodium 140 mmol/L (136-145)
[2021-04-11] MEDS ORDERED: FLU VACC QS2021-22(6MOS UP)/PF 60 MCG/0.5 ML SYRINGE IM ONE (09:00)
[2021-04-11] MEDS: HYDROcodone/Acetaminophen 5/325 mg Tablet PO PRN ×3 (10:18→22:46)
[2021-04-11 16:07] LABS: Hemoglobin 10.9 g/dL (14.0-18.0)
[2021-04-11] MEDS: methylPREDNISolone Sod Succ 40 MG VIAL IVP SCH (20:31)
[2021-04-11] MEDS: Mesalamine DR 400 mg Capsule PO SCH (20:31)
[2021-04-11] MEDS: Enoxaparin Sodium 30 MG/0.3 ML SYRINGE SC SCH (20:34)
[2021-04-12] MEDS: Sodium Chloride 0.9% 1,000 ML IV SCH ×3 (05:28→18:19)
[2021-04-12] MEDS: methylPREDNISolone Sod Succ 40 MG VIAL IVP SCH ×3 (05:53→20:45)
[2021-04-12 06:48] LABS: #Lymphocytes 0.5 thou/uL (1.20-3.40); #Monocytes 0.5 thou/uL (0.11-0.59); #Neutrophils 5.2 thou/uL (1.40-6.50); %Basophils 0.1 % (0.0-1.0); %Eosinophils 0.1 % (0.0-10.0); %Lymphocytes 8.2 % (21.0-51.0); %Monocytes 8.4 % (0.0-10.0); %Neutrophils 83.2 % (42.0-75.0); Hemoglobin 10.1 g/dL (14.0-18.0); Mean Corpuscular HGB CONC 30.5 g/dL (32.0-36.0); Mean Corpuscular Hemoglobin 24.6 pg (27.0-31.0); Mean Corpuscular Volume 80.7 fL (78.0-98.0); Mean Platelet Volume 7.4 fL (7.4-10.4); Platelet Count 323 thou/uL (130-400); RBC Distribution Width 15.9 % (11.5-14.5); Red Blood Cell (RBC) Count 4.11 mill/uL (4.70-6.10); White Blood Cell (WBC) Count 6.3 thou/uL (4.8-10.8)
[2021-04-12 07:08] LABS: Anion Gap 11 mmol/L (10-20); BUN (Urea Nitrogen) 7 mg/dL (8.4-25.7); Calc. Creatinine Clearance 132 mL/min (70-130); Calcium 8.5 mg/dL (7.8-10.44); Carbon Dioxide 22 mmol/L (22-29); Chloride 106 mmol/L (98-107); Glucose 126 mg/dL (70-105); Sodium 135 mmol/L (136-145)
[2021-04-12] MEDS: Mesalamine DR 400 mg Capsule PO SCH ×3 (08:27→20:46)
[2021-04-12] MEDS: Azithromycin 250 MG TAB PO SCH (08:27)
[2021-04-12] MEDS: HYDROcodone/Acetaminophen 5/325 mg Tablet PO PRN ×3 (08:27→22:13)
[2021-04-12 12:08] LABS: SARS-CoV-2 PCR by NAA Not Detected (NotDetected)
[2021-04-12] MEDS: Enoxaparin Sodium 30 MG/0.3 ML SYRINGE SC SCH (20:45)
[2021-04-12 23:16] VITALS: BMI 23.7
[2021-04-13] MEDS: Sodium Chloride 0.9% 1,000 ML IV SCH ×5 (00:30→23:36)
[2021-04-13] MEDS: HYDROcodone/Acetaminophen 5/325 mg Tablet PO PRN ×3 (04:35→16:53)
[2021-04-13] MEDS: methylPREDNISolone Sod Succ 40 MG VIAL IVP SCH ×3 (05:18→21:05)
[2021-04-13] MEDS: Azithromycin 250 MG TAB PO SCH (08:44)
[2021-04-13] MEDS: Mesalamine DR 400 mg Capsule PO SCH ×3 (08:44→21:04)
[2021-04-13 08:53] LABS: #Lymphocytes 0.6 thou/uL (1.20-3.40); #Monocytes 0.6 thou/uL (0.11-0.59); #Neutrophils 7.1 thou/uL (1.40-6.50); %Basophils 0.2 % (0.0-1.0); %Lymphocytes 7.2 % (21.0-51.0); %Monocytes 7.3 % (0.0-10.0); %Neutrophils 85.3 % (42.0-75.0); Hemoglobin 10.8 g/dL (14.0-18.0); Mean Corpuscular HGB CONC 31.6 g/dL (32.0-36.0); Mean Corpuscular Hemoglobin 25.4 pg (27.0-31.0); Mean Corpuscular Volume 80.2 fL (78.0-98.0); Mean Platelet Volume 7.5 fL (7.4-10.4); Platelet Count 337 thou/uL (130-400); RBC Distribution Width 15.8 % (11.5-14.5); Red Blood Cell (RBC) Count 4.27 mill/uL (4.70-6.10); White Blood Cell (WBC) Count 8.3 thou/uL (4.8-10.8)
[2021-04-13 09:10] LABS: Anion Gap 11 mmol/L (10-20); BUN (Urea Nitrogen) 9 mg/dL (8.4-25.7); Calc. Creatinine Clearance 125 mL/min (70-130); Carbon Dioxide 26 mmol/L (22-29); Chloride 106 mmol/L (98-107); Glucose 147 mg/dL (70-105); Sodium 139 mmol/L (136-145)
[2021-04-13] MEDS: Enoxaparin Sodium 30 MG/0.3 ML SYRINGE SC SCH (21:04)
[2021-04-14] MEDS: HYDROcodone/Acetaminophen 5/325 mg Tablet PO PRN ×2 (00:19→06:16)
[2021-04-14] MEDS: methylPREDNISolone Sod Succ 40 MG VIAL IVP SCH (06:16)
[2021-04-14] MEDS ORDERED: predniSONE 20 MG TAB PO SCH (08:00)
[2021-04-14] MEDS: Azithromycin 250 MG TAB PO SCH (09:47)
[2021-04-14] MEDS: Mesalamine DR 400 mg Capsule PO SCH (09:47)
[2021-04-14] MEDS: Sodium Chloride 0.9% 1,000 ML IV SCH (09:47)
[2021-04-14 11:11] VITALS: BP 133/71; TEMP 98.3
== END 2021-04-14 10:59 | disposition home or self-care (01) | DRG 372 ==
LOC: ERS 16:58 → T4-A 21:43 → OBSVTOIN 04-11 11:17
PROVIDERS: ADMIT Internal Medicine; ATTEND Internal Medicine
DX: A04.5 Campylobacter enteritis (principal); K51.90 Ulcerative colitis, unspecified, without complications; Z20.822 Contact with and (suspected) exposure to COVID-19; D64.9 Anemia, unspecified; Z88.1 Allergy status to other antibiotic agents; Z79.899 Other long term (current) drug therapy
CPT/HCPCS: 36415; 74177; 80048; 80053; 83690; 85025; 86140; 87045; 87046; 87324; 87427; 87449; 93005; 96374; G0378; J1650; J1885; J2920; J7050; J7512; Q9967; U0003; U0005

== ENCOUNTER 2021-04-22 15:59 | Inpatient (IN) | payer SELFPAY ==
[2021-04-22 16:44] LABS: #Eosinphils 0.1 thou/uL (0.0-0.7); #Lymphocytes 2.7 thou/uL (1.20-3.40); #Monocytes 1.4 thou/uL (0.11-0.59); #Neutrophils 8.4 thou/uL (1.40-6.50); %Basophils 0.1 % (0.0-1.0); %Eosinophils 0.5 % (0.0-10.0); %Lymphocytes 21.4 % (21.0-51.0); %Monocytes 11.1 % (0.0-10.0); Hemoglobin 11.1 g/dL (14.0-18.0); Mean Corpuscular HGB CONC 30.9 g/dL (32.0-36.0); Mean Corpuscular Hemoglobin 25.3 pg (27.0-31.0); Mean Corpuscular Volume 81.7 fL (78.0-98.0); Platelet Count 405 thou/uL (130-400); RBC Distribution Width 16.1 % (11.5-14.5); Red Blood Cell (RBC) Count 4.41 mill/uL (4.70-6.10); White Blood Cell (WBC) Count 12.5 thou/uL (4.8-10.8)
[2021-04-22] MEDS ORDERED: Ondansetron PF 4 MG/2 ML Vial ONE (16:51)
[2021-04-22 17:10] LABS: ALT (SGPT) 38 U/L (8-55); AST (SGOT) 41 U/L (5-34); Albumin 3.8 g/dL (3.5-5.0); Alkaline Phosphatase 69 U/L (40-110); Anion Gap 11 mmol/L (10-20); BUN (Urea Nitrogen) 14 mg/dL (8.4-25.7); Bilirubin, Total 0.3 mg/dL (0.2-1.2); Calc. Creatinine Clearance 0 mL/min (70-130); Calcium 8.7 mg/dL (7.8-10.44); Carbon Dioxide 29 mmol/L (22-29); Chloride 104 mmol/L (98-107); Globulin 3.2 g/dL (2.4-3.5); Glucose 95 mg/dL (70-105); Lipase 24 U/L (8-78); Sodium 140 mmol/L (136-145)
[2021-04-22 17:24] LABS: Bilirubin Negative (Negative); Blood, Urine Negative (Negative); Clarity Clear (Clear); Glucose, Urine (Dipstick) Normal (Negative); Ketone, Urine Negative (Negative); Leukocyte Negative Leu/uL (Negative); Nitrite Negative (Negative); Protein, Urine (Dipstick) Negative (Neg-Trace); Specific Gravity, Urine 1.032 (1.002-1.036); Urobilinogen Normal mg/dL (Less than 2)
[2021-04-22] MEDS ORDERED: Ondansetron PF 4 MG/2 ML Vial IVP PRN (20:02)
[2021-04-22] MEDS ORDERED: methylPREDNISolone Sod Succ/PF 125 MG/2 ML VIAL ONE (20:18)
[2021-04-22] MEDS ORDERED: Morphine 4 MG/ML VIAL ONE (20:18)
[2021-04-22] MEDS ORDERED: sulfaSALAzine 500 MG TAB PO SCH (20:30)
[2021-04-23 00:39] VITALS: BMI 23.6
[2021-04-23] MEDS: Morphine 4 MG/ML VIAL SLOW IVP PRN ×3 (00:51→13:55)
[2021-04-23] MEDS: Acetaminophen 325 MG TAB PO PRN ×2 (00:52→13:34)
[2021-04-23] MEDS: methylPREDNISolone Sod Succ 40 MG VIAL IVP SCH ×4 (05:53→22:19)
[2021-04-23] MEDS: sulfaSALAzine 500 MG TAB PO SCH ×6 (05:54→20:24)
[2021-04-23 06:09] LABS: #Lymphocytes 0.4 thou/uL (1.20-3.40); #Monocytes 0.4 thou/uL (0.11-0.59); #Neutrophils 9.6 thou/uL (1.40-6.50); %Eosinophils 0.1 % (0.0-10.0); %Lymphocytes 4.1 % (21.0-51.0); %Monocytes 3.5 % (0.0-10.0); %Neutrophils 92.4 % (42.0-75.0); Hemoglobin 11.6 g/dL (14.0-18.0); Mean Corpuscular HGB CONC 30.5 g/dL (32.0-36.0); Mean Corpuscular Hemoglobin 25.1 pg (27.0-31.0); Mean Corpuscular Volume 82.3 fL (78.0-98.0); Mean Platelet Volume 7.2 fL (7.4-10.4); Platelet Count 426 thou/uL (130-400); RBC Distribution Width 16.3 % (11.5-14.5); Red Blood Cell (RBC) Count 4.63 mill/uL (4.70-6.10); White Blood Cell (WBC) Count 10.4 thou/uL (4.8-10.8)
[2021-04-23 06:34] LABS: Anion Gap 12 mmol/L (10-20); BUN (Urea Nitrogen) 13 mg/dL (8.4-25.7); Calc. Creatinine Clearance 113 mL/min (70-130); Calcium 8.9 mg/dL (7.8-10.44); Carbon Dioxide 26 mmol/L (22-29); Chloride 108 mmol/L (98-107); Glucose 132 mg/dL (70-105); Potassium 4.5 mmol/L (3.5-5.1); Sodium 141 mmol/L (136-145)
[2021-04-23] MEDS: Enoxaparin Sodium 40 MG/0.4 ML SYRINGE SC SCH (08:26)
[2021-04-23 13:10] LABS: SARS-CoV-2 PCR by NAA Not Detected (NotDetected)
[2021-04-23 16:25] LABS: Amphetamine Not Detected (NotDetected); Barbiturates Screen Not Detected (NotDetected); Benzodiazepine Screen Not Detected (NotDetected); Cocaine Metabolite Screen Not Detected (NotDetected); Methadone Not Detected (NotDetected); Methamphetamine Not Detected (NotDetected); Opiate Screen Not Detected (NotDetected); Oxycodone Screen Not Detected (NotDetected); Phencyclidine (PCP) Not Detected (NotDetected); THC/Cannabinoid Screen Detected (NotDetected); Tricyclic Screen Not Detected (NotDetected)
[2021-04-23] MEDS: Sodium Chloride 0.9% 1,000 ML IV SCH (19:32)
[2021-04-23] MEDS: Acetaminophen 500 MG TAB PO SCH ×2 (20:09→20:23)
[2021-04-23] MEDS ORDERED: Acetaminophen 500 MG TAB PO SCH (23:59)
[2021-04-24] MEDS ORDERED: HYDROcodone/Acetaminophen 5/325 mg Tablet PO PRN (01:17)
[2021-04-24] MEDS: Acetaminophen 500 MG TAB PO SCH ×3 (01:37→10:48)
[2021-04-24] MEDS: Sodium Chloride 0.9% 1,000 ML IV SCH (04:22)
[2021-04-24] MEDS: methylPREDNISolone Sod Succ 40 MG VIAL IVP SCH ×2 (04:57→12:08)
[2021-04-24 08:19] VITALS: BP 123/75; TEMP 97.9
[2021-04-24] MEDS: Enoxaparin Sodium 40 MG/0.4 ML SYRINGE SC SCH (08:46)
[2021-04-24] MEDS: sulfaSALAzine 500 MG TAB PO SCH (10:12)
[2021-04-25] MEDS ORDERED: predniSONE 20 MG TAB PO SCH (08:00)
[2021-04-25] MEDS ORDERED: Folic Acid 1 MG TAB PO SCH (09:00)
== END 2021-04-24 12:26 | disposition home or self-care (01) | DRG 387 ==
LOC: ERS 15:59 → SURG B 19:42 → OBSVTOIN 04-23 12:34
PROVIDERS: ADMIT Internal Medicine; ATTEND Internal Medicine
DX: K51.90 Ulcerative colitis, unspecified, without complications (principal); Z20.822 Contact with and (suspected) exposure to COVID-19; D64.9 Anemia, unspecified; Z79.899 Other long term (current) drug therapy; Z88.1 Allergy status to other antibiotic agents; Z88.8 Allergy status to other drugs, medicaments and biological substances; Z59.00 Homelessness unspecified
CPT/HCPCS: 36415; 74177; 80048; 80053; 80306; 81003; 83690; 85025; 87045; 87046; 87324; 87427; 87449; 96374; 96375; 96376; G0378; J2270; J2405; J2920; J2930; U0003; U0005

== ENCOUNTER 2021-04-27 14:29 | Emergency (ER) | payer SELFPAY ==
[2021-04-27] MEDS ORDERED: Lorazepam 2 MG/ML VIAL ONE (15:45)
[2021-04-27] MEDS ORDERED: Fentanyl 100 MCG/2 ML VIAL ONE (15:45)
[2021-04-27] MEDS ORDERED: Ketorolac Tromethamine 30 MG/ML VIAL ONE (15:45)
== END 2021-04-27 16:13 | disposition home or self-care (01) ==
LOC: ERS 14:29
DX: S30.0XXA Contusion of lower back and pelvis, initial encounter (principal); W10.8XXA Fall (on) (from) other stairs and steps, initial encounter
CPT/HCPCS: 72131; 96374; 96375; J1885; J2060; J3010

== ENCOUNTER 2021-04-28 00:47 | Emergency (ER) | payer SELFPAY ==
[2021-04-28] MEDS ORDERED: Acetaminophen 500 MG TAB ONE (02:03)
== END 2021-04-28 02:11 | disposition home or self-care (01) ==
LOC: ERS 00:47
DX: F41.8 Other specified anxiety disorders (principal); Z76.0 Encounter for issue of repeat prescription; F17.200 Nicotine dependence, unspecified, uncomplicated; Z79.899 Other long term (current) drug therapy
CPT/HCPCS: 99283

== ENCOUNTER 2021-05-03 02:50 | Emergency (ER) | payer SELFPAY ==
[2021-05-03] MEDS ORDERED: Benzonatate 100 MG CAP PO SCH (04:00)
[2021-05-03 16:57] LABS: SARS-CoV-2 PCR by NAA DETECTED (NotDetected)
== END 2021-05-03 04:22 | disposition home or self-care (01) ==
LOC: ERS 02:50
DX: U07.1 COVID-19 (principal); F17.210 Nicotine dependence, cigarettes, uncomplicated
CPT/HCPCS: 99283; U0003; U0005

== ENCOUNTER 2021-11-04 16:25 | Emergency (ER) | payer SELFPAY ==
[2021-11-04 17:03] LABS: #Basophils 0.1 thou/uL (0.0-0.2); #Lymphocytes 1.4 thou/uL (1.20-3.40); #Neutrophils 6.3 thou/uL (1.40-6.50); %Basophils 0.6 % (0.0-1.0); %Eosinophils 0.4 % (0.0-10.0); %Lymphocytes 15.8 % (21.0-51.0); %Neutrophils 72.1 % (42.0-75.0); Hemoglobin 10.2 g/dL (14.0-18.0); Mean Corpuscular HGB CONC 29.9 g/dL (32.0-36.0); Mean Corpuscular Hemoglobin 21.7 pg (27.0-31.0); Mean Corpuscular Volume 72.6 fL (78.0-98.0); Mean Platelet Volume 10.7 fL (7.4-10.4); Platelet Count 252 thou/uL (130-400); RBC Distribution Width 18.1 % (11.5-14.5); Red Blood Cell (RBC) Count 4.68 mill/uL (4.70-6.10); White Blood Cell (WBC) Count 8.7 thou/uL (4.8-10.8)
[2021-11-04 17:20] LABS: Anisocytosis SLIGHT = 6-15 cells (100X) (0-5/hpf); Hypochromia SLIGHT = 6-15 cells (100X) (0-5/hpf); MDiff Complete? YES; Microcytosis SLIGHT = 6-15 cells (100X) (0-5/hpf); Ovalocytes SLIGHT = 2-5 cells (100X) (0-1/hpf); Platelet Morphology Comment Appears Adequate; Polychromasia SLIGHT = 2-3 cells (100X) (0-2/hpf)
[2021-11-04 17:24] LABS: ALT (SGPT) 10 U/L (8-55); AST (SGOT) 15 U/L (5-34); Acetaminophen Less than 10.0 mcg/mL (10.0-30.0); Albumin 4.1 g/dL (3.5-5.0); Alcohol Less than 10 mg/dL (Less than 10); Alkaline Phosphatase 85 U/L (40-110); Anion Gap 14 mmol/L (10-20); BUN (Urea Nitrogen) 14 mg/dL (8.4-25.7); Bilirubin, Total 0.3 mg/dL (0.2-1.2); Calc. Creatinine Clearance 0 mL/min (70-130); Calcium 9.2 mg/dL (7.8-10.44); Carbon Dioxide 27 mmol/L (22-29); Chloride 104 mmol/L (98-107); Glucose 85 mg/dL (70-105); Potassium 3.8 mmol/L (3.5-5.1); Protein, Total 7.1 g/dL (6.0-8.3); Salicylate Less than 8.0 mg/dL (15.0-30.0); Sodium 141 mmol/L (136-145)
[2021-11-04] MEDS ORDERED: predniSONE 20 MG TAB ONE (18:39)
[2021-11-04] MEDS ORDERED: Ketorolac Tromethamine 30 MG/ML VIAL ONE (18:39)
[2021-11-04 18:59] LABS: Bilirubin Negative (Negative); Blood, Urine Negative (Negative); Clarity Clear (Clear); Glucose, Urine (Dipstick) Normal (Negative); Ketone, Urine Negative (Negative); Leukocyte Negative Leu/uL (Negative); Nitrite Negative (Negative); Protein, Urine (Dipstick) 20 mg/dL (Neg-Trace); Specific Gravity, Urine 1.033 (1.002-1.036); Urobilinogen Normal mg/dL (Less than 2); pH, Urine 5.5 (5.0-9.0)
[2021-11-04 19:07] LABS: Amphetamine Not Detected (NotDetected); Barbiturates Screen Not Detected (NotDetected); Benzodiazepine Screen Not Detected (NotDetected); Cocaine Metabolite Screen Not Detected (NotDetected); Methadone Not Detected (NotDetected); Methamphetamine Not Detected (NotDetected); Opiate Screen Not Detected (NotDetected); Oxycodone Screen Not Detected (NotDetected); Phencyclidine (PCP) Not Detected (NotDetected); THC/Cannabinoid Screen Detected (NotDetected); Tricyclic Screen Not Detected (NotDetected)
[2021-11-04] MEDS ORDERED: sulfaSALAzine 500 MG TAB PO SCH (21:30)
== END 2021-11-04 22:50 | disposition home or self-care (01) ==
LOC: ERS 16:25
DX: K51.90 Ulcerative colitis, unspecified, without complications (principal); F32.9 Major depressive disorder, single episode, unspecified; Z87.19 Personal history of other diseases of the digestive system
CPT/HCPCS: 36415; 80053; 80306; 80307; 81003; 84443; 85025; 93005; 96361; 96374; J1885; J7512

== ENCOUNTER 2021-12-02 12:34 | Emergency (ER) | payer SELFPAY ==
[2021-12-02 13:04] LABS: Hemoglobin 11.3 g/dL (14.0-18.0); Mean Corpuscular Hemoglobin 21.6 pg (27.0-31.0); Mean Corpuscular Volume 74.4 fL (78.0-98.0); Platelet Count 288 thou/uL (130-400); Red Blood Cell (RBC) Count 5.24 mill/uL (4.70-6.10); White Blood Cell (WBC) Count 5.4 thou/uL (4.8-10.8)
[2021-12-02 13:18] LABS: INR-International Normal Ratio 1.1; PTT 29.4 sec (22.9-36.1); Prothrombin Time 14.1 sec (12.0-14.7)
[2021-12-02 13:24] LABS: Anisocytosis SLIGHT = 6-15 cells (100X) (0-5/hpf); Band 1 % (5-11); Hypochromia SLIGHT = 6-15 cells (100X) (0-5/hpf); Lymphocytes 14 % (21-51); MDiff Complete? YES; Microcytosis SLIGHT = 6-15 cells (100X) (0-5/hpf); Monocytes 9 % (0-10); Neutrophil 74 % (42-75); Ovalocytes SLIGHT = 2-5 cells (100X) (0-1/hpf); Platelet Morphology Comment Appears Adequate; Polychromasia SLIGHT = 2-3 cells (100X) (0-2/hpf)
[2021-12-02 13:26] LABS: ALT (SGPT) 8 U/L (8-55); AST (SGOT) 15 U/L (5-34); Albumin 4.3 g/dL (3.5-5.0); Alkaline Phosphatase 78 U/L (40-110); Anion Gap 15 mmol/L (10-20); BUN (Urea Nitrogen) 9 mg/dL (8.4-25.7); Bilirubin, Total 0.4 mg/dL (0.2-1.2); Calc. Creatinine Clearance 0 mL/min (70-130); Calcium 9.2 mg/dL (7.8-10.44); Carbon Dioxide 27 mmol/L (22-29); Chloride 102 mmol/L (98-107); Estimated GFR 102; Globulin 2.8 g/dL (2.4-3.5); Glucose 91 mg/dL (70-105); Lipase 15 U/L (8-78); Potassium 3.5 mmol/L (3.5-5.1); Protein, Total 7.1 g/dL (6.0-8.3); Sodium 140 mmol/L (136-145)
[2021-12-02] MEDS ORDERED: Iopamidol-370 76% 500 ML 1 ML ONE (14:02)
[2021-12-02 15:03] LABS: Clarity Clear (Clear); Specific Gravity, Urine 1.018 (1.002-1.036)
[2021-12-02 15:04] LABS: Bilirubin Unable to Interpret (Negative); Blood, Urine Unable to Interpret (Negative); Glucose, Urine (Dipstick) Unable to Interpret mg/dL (Negative); Ketone, Urine Unable to Interpret mg/dL (Negative); Leukocyte Unable to Interpret (Negative); Nitrite Unable to Interpret (Negative); Protein, Urine (Dipstick) Unable to Interpret mg/dL (Neg-Trace); Urobilinogen UNABLE TO INTERPRET mg/dL (Less than 2); pH, Urine 5.5 (5.0-9.0)
[2021-12-02 15:10] LABS: Bacteria/HPF Rare-Few HPF (None Seen); RBC/HPF 0-3 HPF (0-3); Squamous Epithelial None Seen HPF (0-3)
== END 2021-12-02 19:39 | disposition home or self-care (01) ==
LOC: ERS 12:34
DX: K51.90 Ulcerative colitis, unspecified, without complications (principal)
CPT/HCPCS: 36415; 74177; 80053; 81003; 81015; 83690; 85025; 85610; 85730; 86850; 86900; 86901; 96360; Q9967